=== PATIENT | male | born 1990 | race Two or more races ===

== ENCOUNTER 2020-01-08 14:42 | Outpatient (REF) | payer OTHER, SELFPAY | END 2020-01-08 14:43 | disposition home or self-care (01) | LOC: HO.LAB 14:42 | PROVIDERS: PCP Physician Assistant; Visit Provider Internal Medicine | DX: Z20.828 Contact with and (suspected) exposure to other viral communicable diseases (principal) | CPT/HCPCS: 87635 ==

== ENCOUNTER 2020-02-09 23:41 | Emergency (ER) | payer OTHER, SELFPAY ==
[2020-02-09 23:43] VITALS: BP 137/91; PULSE 105; RESP 20; TEMP 36.2; O2SAT 98; BMI 28.2
--- NOTE | 2020-02-10 00:41 | PC.NURSE ---
pt a&O no sob or chest pain, pt has right side facial drop. all other neuro intact. denies any dizziness and light headiness
--- NOTE | 2020-02-10 00:51 | XR_ITS ---
EXAMINATION: CHEST 2 VIEWS CLINICAL INFORMATION: Left elbow palsy. COMPARISON: 12/25/2017. TECHNIQUE: PA and lateral views of the chest were obtained. FINDINGS: The cardiac silhouette is not enlarged. The mediastinal and hilar contours are unremarkable. There are neither pleural effusions nor pneumothoraces. There are no consolidations. The osseous structures are stable. XR/XR chest 2V IMPRESSION: No evidence for acute disease.
[2020-02-10] MEDS: predniSONE 20 MG TABLET 80 MG PO (01:04)
[2020-02-10 01:05] VITALS: BP 122/79; PULSE 77
--- NOTE | 2020-02-10 01:19 | ED.NEUROSD ---
HPI - Neuro Symptoms/Deficit General Chief Complaint: Neuro Symptoms/Deficit Stated Complaint: Facial Numbness Time Seen by Provider: 02/10/20 00:51 Source: patient Mode of arrival: ambulatory Limitations: no limitations History of Present Illness HPI Narrative: This is a 29-year-old male who presents with onset of left-sided facial numbness and asymmetry when compared to the right without any known tick exposure, new medications, difficulty breathing, chest discomfort, fevers, chills, but patient does state a burning sensation wrapping around the left side of his neck into the angle of the left jaw. He denies any intraoral discomfort, tooth pain, or difficulty swallowing. In addition, he denies any ringing of the ears or loss of hearing. Related Data Previous Rx's Medication Instructions Recorded prednisone 80 mg PO DAILY 7 Days #28 tab 02/10/20 valacyclovir 1,000 mg PO TID 7 Days #21 tab 02/10/20 Allergies Allergy/AdvReac Type Severity Reaction Status Date / Time cefotetan [CEFOTETAN] Allergy Unknown SOB Verified 02/09/20 23:48 Review of Systems Review of Systems: Pertinent positives and negatives as stated in HPI and 10 point review of systems is otherwise negative. PMFSH Past Medical History Source: nursing notes reviewed Medical History Acute gastritis Cholecystitis Pelvic fracture Social History Social History Alcohol intake: unknown Smoking Status: Unknown if ever smoked Use of substances other than those prescribed or required for medical reasons: No Advance Directives: No Advance Directives Information Provided: No Physical Exam Vital Signs: Vital Signs: Last Vital Signs Temp 97.2 F 02/09/20 23:43 Pulse 77 02/10/20 01:05 Resp 20 02/09/20 23:43 BP 122/79 02/10/20 01:05 Pulse Ox 98 02/09/20 23:43 Body Mass Index 28.2 VITAL SIGNS: Reviewed. GENERAL: Well developed, well nourished, in no acute distress. HEAD: Normocephalic/atraumatic, EYES: PERRLA, EOMI intact without pain, no nystagmus/pallor/icterus noted EARS: Ext canals without abnormality, TMs non-bulging and non-erythematous NOSE: Nares patent bilateral OROPHARYNX: no oral lesions noted, posterior pharynx clear and non-erythematous without noted tonsillar enlargement/erythema/exudates NECK: Supple, no adenopathy LUNGS: Normal breath sounds. No adventitious sounds or accessory muscle use. SpO2<98> CARDIOVASCULAR: Regular rate and rhythm without noted murmurs, no JVD or lower extremity edema. ABDOMEN: Soft, non-tender, non-distended with bowel sounds. No rigidity. No guarding. No palpable masses or hernias noted MUSCULOSKELETAL: No tenderness, deformities, or effusions noted on gross inspection. EXTREMITIES: No cyanosis, clubbing or edema. SKIN: Inspection of the skin reveals no rashes, ulcerations, jaundice, pallor, or petechiae. NEUROLOGIC: Alert and oriented x 4. Strength and sensation to light touch were grossly intact x 4; Patient has complete left facial droop with the inability to completely close the left eye, raise the left eyebrow. Course Course Course Narrative: This is a 29-year-old male with history and clinical presentation consistent with Chong's palsy of unclear etiology however given the burning sensation that patient is experiencing along the left side of the neck there is a possibility this is HSV in etiology. Monospot is negative and a Lyme titer has been sent although this is unlikely to be the etiology given lack of history and patient will not empirically be treated with doxycycline. Patient was given initial prednisone and valacyclovir here in the ED and will be discharged with a outpatient prescription and instructions to follow-up with his primary care provider. On review of chest x-ray there is no evidence for mass contributing to the symptoms. MDM - Neuro Symptoms/Deficit Lab Data Labs: Lab Results 02/10/20 Range/Units 01:12 Monoscreen Negative (Negative) Discharge Plan Discharge Clinical Impression: Chong's palsy Patient Disposition: Home, Self-Care Instructions: Chong Palsy (ED) Additional Instructions: 1. you need to purchase artificial tears and apply 1 drop to your left eye, every hour, while awake to maintain adequate moisture. At night you will need to apply a small amount Vaseline to the left eye to protect it while sleeping as it will not close completely. 2. You will need to follow-up with your primary care provider on Tuesday. The patient and/or family acknowledge understanding of results (as applicable), diagnosis, treatment plan, need for follow up, and symptoms that should prompt a return to the emergency room. Prescriptions: New prednisone 20 mg tablet 80 mg PO DAILY 7 Days Qty: 28 RF: 0 valacyclovir 1 gram tablet 1,000 mg PO TID 7 Days Qty: 21 RF: 0 Referrals: Physician,Unknown [Primary Care Provider] - 2 days
[2020-02-10 01:40] LABS: Monotest Negative (Negative)
[2020-02-10 02:05] VITALS: BP 115/79; PULSE 80; RESP 18; O2SAT 98
[2020-02-12 08:52] LABS: Lyme Abs Screen <0.90 index
== END 2020-02-10 02:30 | disposition home or self-care (01) ==
PROVIDERS: Emergency Provider Student in an Organized Health Care Education/Training Program
DX: G51.0 Bell's palsy (principal); R20.0 Anesthesia of skin; R07.89 Other chest pain; Z79.899 Other long term (current) drug therapy
CPT/HCPCS: 71046; 86308; 86618; 99283; 99284

== ENCOUNTER 2020-02-21 14:40 | Emergency (ER) | payer OTHER, SELFPAY ==
[2020-02-21 14:51] VITALS: BP 123/73; PULSE 96; RESP 16; TEMP 37.2; O2SAT 97; BMI 29.0
--- NOTE | 2020-02-21 15:03 | ED_ITS ---
HPI - General Adult General Chief complaint: General Medical Stated complaint: facial pain Time Seen by Provider: 02/21/20 15:03 History of Present Illness HPI narrative: Patient is a 29-year-old male with a history of Chong's palsy for the last week and a half. Patient was given a prescription for prednisone and Valtrex a few days ago. Complaining of symptoms continuing. No fever no chills no ringing in the ears. No nausea no vomiting. No changes in vision. Positive itchy eyes on the left. No focal arm weakness. No leg weakness. Patient is from home. Patient claims he does not go outside in the [place]. No pets Related Data Previous Rx's Medication Instructions Recorded prednisone 80 mg PO DAILY 7 Days #28 tab 02/10/20 valacyclovir 1,000 mg PO TID 7 Days #21 tab 02/10/20 Allergies Allergy/AdvReac Type Severity Reaction Status Date / Time cefotetan [CEFOTETAN] Allergy Unknown SOB Verified 02/09/20 23:48 Review of Systems Review of Systems: Constitutional: No Weight loss, No Fever, No Chills, No Night Sweats, No Fatigue, No Malaise ENT/Mouth: No Hearing loss, No Ear Pain, No Nasal Congestion, No Sinus Pain, No Hoarseness, No sore throat, No Rhinorrhea, No Swallowing Difficulty Eyes: No Eye Pain, No Swelling, No Redness, No Foreign Body, No Discharge, No Vision Changes Cardiovascular: No Chest Pain, No SOB, No Dyspnea on Exertion, No Orthopnea, No Edema, No Palpitations Respiratory: No Cough, No Sputum, No Wheezing, No Smoke Exposure, No Dyspnea Gastrointestinal: No Nausea, No Vomiting, No Diarrhea, No Constipation, No abdominal Pain, No Hematochezia, No Melena Genitourinary: no irregular bleeding, No Dysuria, No Urinary Frequency, No Hematuria, No Urinary Incontinence, No Urgency, No Flank Pain, No Urinary Flow Changes, No Hesitancy Musculoskeletal: No joint pain, No Myalgias, No Joint Swelling Skin: No Skin Lesions, No rash Neuro: positive left-sided facial weakness, No Numbness, No Paresthesias, No Loss of Consciousness, No Dizziness, No Headache. Psych: No Anxiety/Panic, No Depression, No SI/HI/AH/VH, No Social Issues, Heme/Lymph: No Bruising, No Bleeding,No Lymphadenopathy Endocrine: No Polyuria, No Polydipsia, No Temperature Intolerance Yes all other systems are reviewed and are negative [facility] Past Medical History Attestation statement: The following information was validated with the patient. Medical History Acute gastritis Cholecystitis Pelvic fracture Social History Social History Alcohol intake: unknown Smoking Status: Unknown if ever smoked Advance Directives: No Advance Directives Information Provided: Yes Physical Exam Vital Signs: Vital Signs: Last Vital Signs Temp 98.9 F 02/21/20 14:51 Pulse 96 02/21/20 14:51 Resp 16 02/21/20 14:51 BP 123/73 02/21/20 14:51 Pulse Ox 97 02/21/20 14:51 Body Mass Index 29.0 Appearance: Alert. Oriented X3. No acute distress. Eyes: Pupils equal, round and reactive to light. ENT: Pharynx normal. Neck: Normal inspection. Neck supple. No lymph nodes noted. No crepitus CVS: Normal heart rate and rhythm. Pulses normal. Normal S1 and S2 Respiratory: No respiratory distress. Breath sounds normal. No Wheezing. No rales Abdomen: Soft and nontender. No rigidity. No distention. good BS x4 Skin: Skin warm and dry. Normal skin color. Normal skin turgor. Extremities: No lower extremity edema. Neurovascular intact to all extremities. No Lacerations. No Rash Neuro: Oriented X 3. No sensory deficit. Moving all extermities. No slurred speech. Patient cannot wrinkle his forehead there is a droop noted on the left side. Sensation over the face intact. Unable to close his eyes perfectly. Able to open his eyes without any difficulty. Voice is the same. Good strength in the bilateral upper extremity T. Bilateral lower extremities show 5/5 strength ambulates without any difficulty. Medical Decision Making MDM Narrative Medical decision making narrative: Patient has symptoms consistent with having Chong's palsy. Both the upper half and the lower half of the left face is weak. There is no change in voice. Ambulates with normal gait good hand grasp bi laterally. Patient is already on steroid and antiviral as. Moore at this time patient can be discharged home close follow-up on an outpatient basis with Neurology. In stable condition. A line was sent. Discharge Plan Discharge Clinical Impression: Chong palsy Patient Disposition: Home, Self-Care Instructions: Chong Palsy (ED) Additional Instructions: Please tape the eye at night. Prescriptions: No Action prednisone 20 mg tablet 80 mg PO DAILY 7 Days Qty: 28 RF: 0 valacyclovir 1 gram tablet 1,000 mg PO TID 7 Days Qty: 21 RF: 0 Referrals: Seun Bang PA-C [Primary Care Provider] - 2 days
[2020-02-22 13:41] LABS: Lyme Abs Screen <0.90 index
== END 2020-02-21 15:28 | disposition home or self-care (01) ==
PROVIDERS: Emergency Provider Emergency Medicine Emergency Medical Services; PCP Physician Assistant
DX: G51.0 Bell's palsy (principal); Z79.899 Other long term (current) drug therapy
CPT/HCPCS: 86618; 99283

== ENCOUNTER 2020-03-06 15:26 | Outpatient (REF) | payer OTHER, SELFPAY ==
--- NOTE | 2020-03-06 15:41 | XR_ITS ---
EXAMINATION: XR PELVIS CLINICAL INFORMATION: Diabetes COMPARISON: None TECHNIQUE: AP view of the pelvis. FINDINGS: There is no evidence of acute fracture or diastases of the pelvis. Since previous CT scan of December 25, 2017 patient is status post augmentation with placement of sideplate and screws overlying both superior pubic rami and the pubis. A nail is seen overlying the sacrum and left sacroiliac joint. No other bony abnormalities appreciated. Hip joint spaces are maintained. No lytic or sclerotic lesions involving the hip joints. There appears be some mild bilateral facet arthropathy L5-S1. XR/XR pelvis 1-2V IMPRESSION: Postsurgical change as described. No other significant abnormality of the pelvis.
[2020-03-06 16:02] LABS: MANUAL DIFF FLAG NO
[2020-03-06 16:06] LABS: Basophils Percent Auto 0.3 % (0-2); Eosinophils Absolute Auto 0.1 X10*3/uL (0.0-0.4); Eosinophils Percent Auto 1.4 % (0-4); Hematocrit 46.3 % (42-52); Imm Gran Abs Auto 0.02 X10*3/uL (0.00-0.03); Imm Gran Pct Auto 0.3 % (0.0-0.4); Lymphocytes Percent Auto 33.8 % (20-40); Mean Corpuscular HGB Conc 32.4 g/dl (31.0-36.0); Mean Corpuscular Hemoglobin 27.9 pg (27.0-33.0); Mean Corpuscular Volume 86.1 fL (80-98); Mean Platelet Volume 9.8 fL (9.4-12.4); Monocytes Absolute Auto 0.7 X10*3/uL (0.1-1.2); Neutrophils Absolute Auto 3.1 X10*3/uL (2.0-8.3); Neutrophils Percent Auto 53.2 % (45-73); Platelet Count 253 X10*3/uL (160-400); Red Blood Count 5.38 X10*6/uL (4.60-5.80); Red Cell Distribution Width 13.8 % (11.0-16.0); White Blood Count 5.9 X10*3/uL (4.8-10.8)
[2020-03-06 16:32] LABS: Alanine Aminotransferase 154 U/L (0-40); Albumin Level 4.7 g/dL (3.5-5.0); Alkaline Phosphatase 67 U/L (39-117); Anion Gap 15 (12-20); Aspartate Amino Transferase 55 U/L (5-37); Bilirubin Total 0.6 mg/dL (0.0-1.0); Blood Urea Nitrogen 10 mg/dL (9-16); Calcium 9.1 mg/dL (8.4-10.2); Carbon Dioxide 29 mmol/L (22-29); Chloride 102 mmol/L (96-108); Cholesterol 238 mg/dL; Estimated Glomerular Filt Rate > 60; Glucose Fasting 90 mg/dL (60-99); HDL Cholesterol 41 mg/dL; LDL Cholesterol Calculated 180 mg/dl; Potassium 4.3 mmol/l (3.3-5.1); Sodium 142 mmol/L (135-145); Total Protein 7.5 g/dL (6.5-8.0); Triglycerides 89 mg/dL
[2020-03-07 07:53] LABS: Estimated Average Glucose 123 mg/dL; Hemoglobin A1c % 5.9 %
[2020-03-07 09:32] LABS: Herpes Simplex Type 2 IgG <0.90 index
[2020-03-11 14:27] LABS: HSV 1 IgM IFA Negative (Negative); HSV 2 IgM IFA Negative (Negative)
== END 2020-03-06 15:27 | disposition home or self-care (01) ==
LOC: HO.LAB 15:26
PROVIDERS: PCP Physician Assistant; Visit Provider Physician Assistant
DX: Z13.29 Encounter for screening for other suspected endocrine disorder (principal); G51.0 Bell's palsy; Z13.220 Encounter for screening for lipoid disorders; Z13.1 Encounter for screening for diabetes mellitus; Z23 Encounter for immunization
CPT/HCPCS: 36415; 72170; 80053; 80061; 83036; 84443; 85025; 86695; 86696

== ENCOUNTER 2020-06-11 20:45 | Emergency (ER) | payer OTHER, SELFPAY ==
[2020-06-11 20:57] VITALS: BP 141/87; PULSE 98; RESP 16; TEMP 37.1; O2SAT 97; BMI 33.6
--- NOTE | 2020-06-11 22:19 | ED_ITS ---
HPI - Skin/Abscess/Foreign Bdy General Chief complaint: Skin/Abscess/Foreign Body Stated complaint: abscess Time Seen by Provider: 06/11/20 21:56 Source: patient Mode of arrival: ambulatory Limitations: no limitations History of Present Illness HPI narrative: Patient comes emergency room complaining of an ingrown hair that caused an abscess on his scrotum on the right side. Patient states that it has been growing for the last 4 days. Patient denies fever chills. Patient states that prior to arrival, patient plucked the ingrown hairs. Related Data Previous Rx's Medication Instructions Recorded sulfamethoxazole-trimethoprim 1 tab PO BID #13 tab 06/11/20 [Bactrim DS] Allergies Allergy/AdvReac Type Severity Reaction Status Date / Time cefotetan [CEFOTETAN] Allergy Unknown SOB Verified 05/27/20 18:12 Review of Systems Review of Systems: Constitutional : No Weight loss, No Fever, No Chills, No Night Sweats, No Fatigue, No Malaise ENT/Mouth : No Hearing loss, No Ear Pain, No Nasal Congestion, No Sinus Pain, No Hoarseness, No sore throat, No Rhinorrhea, No Swallowing Difficulty Eyes: No Eye Pain, No Swelling, No Redness, No Foreign Body, No Discharge, No Vision Changes Cardiovascular : No Chest Pain, No SOB, No Dyspnea on Exertion, No Orthopnea, No Edema, No Palpitations Respiratory : No Cough, No Sputum, No Wheezing, No Smoke Exposure, No Dyspnea Gastrointestinal : No Nausea, No Vomiting, No Diarrhea, No Constipation, No abdominal Pain, No Hematochezia, No Melena Genitourinary : no irregular bleeding, No Dysuria, No Urinary Frequency, No Hematuria, No Urinary Incontinence, No Urgency, No Flank Pain, No Urinary Flow Changes, No Hesitancy Musculoskeletal : No joint pain, No Myalgias, No Joint Swelling Skin : Painful abscess in the scrotal Neuro : No Weakness, No Numbness, No Paresthesias, No Loss of Consciousness, No Dizziness, No Headache Psych : No Anxiety/Panic, No Depression, No SI/HI/AH/VH, No Social Issues, Heme/Lymph: No Bruising, No Bleeding,No Lymphadenopathy Endocrine : No Polyuria, No Polydipsia, No Temperature Intolerance PMFSH Past Medical History Medical History Acute gastritis Cholecystitis Pelvic fracture Surgical History History of pelvic surgery Family History Family History Father No problems noted. Mother No problems noted. Social History Social History Alcohol intake: current Alcohol intake frequency: holidays/special occasions only Smoking Status: Current every day smoker Cigarettes Per Day: 3 Use of substances other than those prescribed or required for medical reasons: No Advance Directives: No Advance Directives Information Provided: No Physical Exam Vital Signs: Vital Signs: Last Vital Signs Temp 98.7 F 06/11/20 20:57 Pulse 98 06/11/20 20:57 Resp 16 06/11/20 20:57 BP 141/87 H 06/11/20 20:57 Pulse Ox 97 06/11/20 20:57 Body Mass Index 33.6 Appearance: Alert. Oriented X3. No acute distress. Eyes: Pupils equal, round and reactive to light. ENT: Pharynx normal. Neck: Normal inspection. Neck supple. No lymph nodes noted. No crepitus CVS: Normal heart rate and rhythm. Pulses normal. Normal S1 and S2 Respiratory: No respiratory distress. Breath sounds normal. No Wheezing. No rales Abdomen: Soft and nontender. No rigidity. No distention. good BS x4 Skin: Skin warm and dry. Normal skin color. 1 cm abscess adjacent to the base of the penis, on the skin of the right scrotum, movable, erythematous, red to touch, on bedside ultrasound shows small amount of fluid, on Doppler view no vascularization Extremities: No lower extremity edema. No lower extremity edema. No Lacerations. No Rash Neuro: Oriented X 3. No motor deficit. No sensory deficit. Moving all extermities. No slurred speech. Course Course Course Narrative: I discussed with the patient that he does have a small abscess, agreed to have it aspirated. The abscess was located with ultrasound, when lidocaine was injected into the abscess, the pressure of the lidocaine caused it to pop, pus squirted out, needle aspiration fall, draining less than 0.1 mL of pus, minimal residual bleeding, the size of the abscess reduced. Patient tolerated well the p rocedure. Patient was giving a 1st dose of Bactrim in the emergency room. Patient does not have surrounding cellulitis, no suspicion for Ze gangrene. Procedures Abscess I/D Site: other (Right scrotum) Side (if applicable): right Local Anesthetic: lidocaine 2% Amount of anesthesia used (mL): 2 Technique: needle aspiration Sent for culture/gram staining?: No Irrigation: No Packing used?: none Complications: pain Discharge Plan Discharge Clinical Impression: Abscess Patient Disposition: Home, Self-Care Instructions: Abscess (ED) Additional Instructions: Please follow-up with your primary care physician tomorrow. If you have any worsening or new symptoms, please return to the emergency room or call 911 Prescriptions: New sulfamethoxazole-trimethoprim [Bactrim DS] 800-160 mg tablet 1 tab PO BID Qty: 13 RF: 0
[2020-06-11] MEDS: Lidocaine HCl 2 % MPF 5 ML VIAL INFILTRATI (23:27)
== END 2020-06-11 23:32 | disposition home or self-care (01) ==
PROVIDERS: Emergency Provider Emergency Medicine; PCP Physician Assistant
DX: N49.2 Inflammatory disorders of scrotum (principal); F17.210 Nicotine dependence, cigarettes, uncomplicated
CPT/HCPCS: 10060; 99284

== ENCOUNTER 2022-03-01 13:11 | Outpatient (REF) | payer OTHER, SELFPAY ==
[2022-03-01 14:10] LABS: Hematocrit 46.1 % (42.0-52.0); Hemoglobin 15.1 g/dl (14.0-18.0); Mean Corpuscular HGB Conc 32.8 g/dl (31.0-36.0); Mean Corpuscular Volume 85.4 fL (80.0-98.0); Mean Platelet Volume 10.8 fL (9.4-12.4); Platelet Count 265 X10*3/uL (160-400); Red Cell Distribution Width 13.5 % (11.0-16.0)
[2022-03-01 15:02] LABS: Alanine Aminotransferase 151 U/L (0-40); Albumin Level 4.6 g/dL (3.5-5.0); Alkaline Phosphatase 64 U/L (39-117); Anion Gap 13 (12-20); Aspartate Amino Transferase 63 U/L (5-37); Bilirubin Total 0.8 mg/dL (0.0-1.0); Blood Urea Nitrogen 8 mg/dL (9-16); Calcium 9.5 mg/dL (8.4-10.2); Carbon Dioxide 26 mmol/L (22-29); Chloride 106 mmol/L (96-108); Cholesterol 199 mg/dL; Estimated Glomerular Filt Rate > 60; Glucose Fasting 83 mg/dL (60-99); HDL Cholesterol 38 mg/dL; LDL Cholesterol Calculated 131 mg/dl; Potassium 4.5 mmol/L (3.3-5.1); Sodium 140 mmol/L (135-145); TSH reflex Free T4 1.27 uIU/mL (0.32-4.0); Total Protein 7.3 g/dL (6.5-8.0); Triglycerides 150 mg/dL
== END 2022-03-01 13:12 | disposition home or self-care (01) ==
LOC: HO.LAB 13:11
PROVIDERS: PCP Physician Assistant; Visit Provider Physician Assistant
DX: Z13.220 Encounter for screening for lipoid disorders (principal); Z13.29 Encounter for screening for other suspected endocrine disorder
CPT/HCPCS: 36415; 80053; 80061; 84443; 85027